=== PATIENT | male | born 1975 | race Hispanic/Latino ===

== ENCOUNTER → 2018-09-21 | Outpatient (CLI) | payer BC | END | disposition home or self-care (01) | LOC: SLP 20:19 | PROVIDERS: ATTEND Family Medicine | DX: G47.9 Sleep disorder, unspecified (principal) | CPT/HCPCS: 95810 ==

== ENCOUNTER 2019-09-15 17:46 | Observation (INO) | payer BC, OTHER ==
[~2019-09-15] VITALS: Ht 172.7 cm; Wt 131.5 kg
[2019-09-15] MEDS ORDERED: LIDOCAINE 1%-EPI 1:100,000 20 ML VIAL IJ ONE (18:01)
[2019-09-15 18:30] LABS: BASOPHILS % (AUTO) 0.4 % (0.0-5.0); EOSINOPHILS % (AUTO) 1.7 % (0.0-8.0); HEMATOCRIT 44.1 % (42-54); LYMPHOCYTES % (AUTO) 25.8 % (21.0-51.0); MEAN CORPUSCULAR HGB CONC 33.8 g/dL (32.0-36.0); MEAN CORPUSCULAR VOLUME 88.7 fL (79-99); NEUTROPHILS % (AUTO) 64.7 % (40.0-77.0); PLATELET COUNT (AUTO) 208 K/uL (130-400); RED BLOOD CELL COUNT(AUTO) 4.97 MIL/uL (4.50-6.20); WHITE BLOOD COUNT (AUTO) 8.3 K/uL (4.8-10.8)
[2019-09-15] MEDS ORDERED: SODIUM CHLORIDE 0.9% 100 ML IV ONE (18:34)
[2019-09-15] MEDS ORDERED: CEFAZOLIN SODIUM 1 GM VIAL ONE (18:34)
[2019-09-15 18:46] LABS: INR 1.08 (0.85-1.15); PARTIAL THROMBOPLASTIN TIME 26.6 SEC (26.3-35.5); PROTHROMBIN TIME 11.3 SEC (9.6-11.6)
[2019-09-15 18:48] LABS: ALBUMIN 3.9 g/dL (3.5-5.0); BILIRUBIN,TOTAL 0.2 mg/dL (0.2-1.0); CREATININE 0.9 mg/dL (0.5-1.5); TOTAL PROTEIN, SERUM 7.8 g/dL (6.0-8.3)
[2019-09-15] MEDS ORDERED: ACETAMINOPHEN 325 MG TAB PO PRN (19:45)
[2019-09-15] MEDS ORDERED: ONDANSETRON HCL 4 MG/2 ML VIAL IVP PRN (19:45)
[2019-09-15] MEDS ORDERED: SODIUM CHLORIDE 0.9% 1000ML 1,000 ML IV SCH (19:45)
[2019-09-15] MEDS ORDERED: HYDRALAZINE HCL 20 MG/ML VIAL IV PRN (19:45)
[2019-09-15] MEDS ORDERED: LIDOCAINE HCL-MPF 1% 2ML VIAL IV PRN (21:30)
[2019-09-15] MEDS ORDERED: POTASSIUM CHLORIDE 10% ELIXIR 20 MEQ/15 ML UDCUP PO PRN (21:30)
[2019-09-15] MEDS ORDERED: POTASSIUM CHLORIDE 20MEQ/100ML 100 ML IV PRN (21:30)
--- NOTE | 2019-09-15 21:45 | NUR ---
Admission Assessment Received pt from ED per stretcher, w/ spouse, left wrist dressing re- assess noted with 1cm cut with 1 silk suture intact, negative bleeding on site,re-dress, cover with 2x2 gauze, secure with small opsite. Pt encourage to continue moving his left thumb with the rest of the finger which per pt it trigger a little bit of pain, explained that it expected as the muscle has been cut. Routine admission assessment done, plan of care discuss aware pending consult with Dr. Horne in AM. Pt was reminded to be NPO after MN in case any surgical intervention will be needed. Home medication obtain & recorded, refused any type of vaccination. Pt currently denies discomfort.
[2019-09-15 21:47] VITALS: BP 142/79
[2019-09-15] MEDS ORDERED: AMLO10TA7 PO (22:15)
[2019-09-15] MEDS ORDERED: FISH1CAP63 PO (22:15)
[2019-09-15] MEDS ORDERED: LISI1TAB32 PO (22:15)
[2019-09-15] MEDS: POTASSIUM CHLORIDE 20 MEQ ERTAB PO PRN (22:16)
[2019-09-15 23:08] VITALS: BP 127/77
[2019-09-16] MEDS: POTASSIUM CHLORIDE 20 MEQ ERTAB PO PRN ×2 (00:53→08:18)
[2019-09-16 03:56] VITALS: BP 120/65
[2019-09-16 06:55] LABS: BASOPHILS % (AUTO) 0.2 % (0.0-5.0); EOSINOPHILS % (AUTO) 1.9 % (0.0-8.0); HEMATOCRIT 40.9 % (42-54); LYMPHOCYTES % (AUTO) 20.4 % (21.0-51.0); MEAN CORPUSCULAR HEMOGLOBIN 29.9 pg (27.0-33.0); MEAN CORPUSCULAR HGB CONC 33.3 g/dL (32.0-36.0); MEAN CORPUSCULAR VOLUME 89.9 fL (79-99); MONOCYTES % (AUTO) 8.6 % (3.0-13.0); NEUTROPHILS % (AUTO) 68.7 % (40.0-77.0); PLATELET COUNT (AUTO) 200 K/uL (130-400); RED BLOOD CELL COUNT(AUTO) 4.55 MIL/uL (4.50-6.20); RED CELL DISTRIBUTION WIDTH 13.1 % (11.0-15.5); WHITE BLOOD COUNT (AUTO) 8.2 K/uL (4.8-10.8)
[2019-09-16 07:15] LABS: CREATININE 0.9 mg/dL (0.5-1.5); POTASSIUM 3.8 mmol/L (3.5-5.1)
[2019-09-16 08:09] VITALS: BP 124/77
[2019-09-16] MEDS ORDERED: HYDROCHLOROTHIAZIDE 25 MG TABLET PO SCH (09:00)
[2019-09-16] MEDS ORDERED: FISH OIL 1000 MG/CAP PO SCH (09:00)
[2019-09-16] MEDS ORDERED: LISINOPRIL 10 MG TABLET PO SCH (09:00)
[2019-09-16 11:14] VITALS: BP 137/74
[2019-09-16] MEDS ORDERED: CEFAZOLIN SODIUM 1 GM VIAL ONE (12:54)
--- NOTE | 2019-09-16 13:53 | NUR ---
PT BACK FROM OR DRESSING TO LEFT HAND DRY/INTACT. AAOX3.
[2019-09-16 14:05] VITALS: BP 160/87
--- NOTE | 2019-09-16 17:11 | NUR ---
PT D/C HOME USING TEACH BACK TECHNIQUE RE; NEW MEDS, HOME MEDS, S/S TO WATCH FOR AND WHEN TO CALL MD OR 911. Follow up with your primary doctor in 2-4 days. Follow up with Dr. Horne in 2 weeks. [phone] if unable to control pain call your primary doctor. if bleeding occurs apply direct pressure and call 911 or may go to your nearest emergency room. if you notice pus, redness, hot to touch or fevers of 101.0 call your primary doctor. may cover wound with band aid for 24 hours and then may leave open to air. keep laceration dry at all times. may showe after 24 hours and rinse with soap and water and pad dry with clean towel. IV OUT INTACT, NO BLEEDING, AAOX3, DENIES ANY NEEDS AT THIS TIME AND HAS NO QUESTIONS.
[2019-09-16] MEDS ORDERED: AMLODIPINE BESYLATE 5 MG TAB PO SCH (21:00)
== END 2019-09-16 17:14 | disposition home or self-care (01) ==
LOC: EDH 17:46 → EDHIP 19:31 → 4CH 21:20
PROVIDERS: ADMIT Family Medicine; ATTEND Family Medicine
DX: S61.512A Laceration without foreign body of left wrist, initial encounter (principal); S61.532A Puncture wound without foreign body of left wrist, initial encounter; I10 Essential (primary) hypertension; E78.00 Pure hypercholesterolemia, unspecified; E78.5 Hyperlipidemia, unspecified; E87.6 Hypokalemia; W26.0XXA Contact with knife, initial encounter; Y93.89 Activity, other specified; Y92.89 Other specified places as the place of occurrence of the external cause; Y99.8 Other external cause status
CPT/HCPCS: 12031; 36415 ×2; 73130; 80048; 80053; 85025 ×2; 85610; 85730; 86850; 86900; 86901; 99284; G0378 ×6; J0690; J3480; J3490 ×2; J7030